=== PATIENT | male | born 1980 | race African-American/Black ===

== ENCOUNTER 2017-08-06 14:07 | Emergency (ER) | payer OTHER ==
[~2017-08-06] VITALS: Ht 177.8 cm; Wt 80.0 kg
[2017-08-06 14:09] VITALS: BP 137/82; PULSE 68; RESP 15; TEMP 98.3; O2SAT 98
[2017-08-06 16:53] VITALS: BP 134/86; PULSE 63; RESP 18; O2SAT 98
[2017-08-06] MEDS ORDERED: METHOCARBAMOL 500 MG TAB PO ONE (17:00)
[2017-08-06] MEDS ORDERED: IBUPROFEN 800 MG TAB PO ONE (17:00)
[2017-08-06] MEDS ORDERED: IBUP1TAB7 PO (17:03)
[2017-08-06] MEDS ORDERED: ROBA750T PO (17:03)
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
== END 2017-08-06 17:31 | disposition home or self-care (01) ==
LOC: NEPD 14:07
DX: M54.5 Low back pain (principal); R51 Headache; V53.5XXA Driver of pick-up truck or van injured in collision with car, pick-up truck or van in traffic accident, initial encounter
CPT/HCPCS: 99283